=== PATIENT | female | born 1945 | race Caucasian/White ===

== ENCOUNTER → 2017-03-28 | Outpatient (CLI) | payer MEDICARE, OTHER | END | disposition home or self-care (01) | LOC: CFH 14:08 | PROVIDERS: ATTEND Family Medicine | DX: Z12.31 Encounter for screening mammogram for malignant neoplasm of breast (principal) | CPT/HCPCS: G0202 ==

== ENCOUNTER → 2018-05-29 | Outpatient (CLI) | payer MEDICARE | END | disposition home or self-care (01) | LOC: CFH 08:54 | PROVIDERS: ATTEND Family Medicine | DX: Z12.31 Encounter for screening mammogram for malignant neoplasm of breast (principal) | CPT/HCPCS: 77067 ==

== ENCOUNTER 2019-08-10 14:28 | Outpatient (CLI) | payer MEDICARE | END 2019-08-10 23:59 | disposition home or self-care (01) | LOC: CFH 14:28 | PROVIDERS: ATTEND Family Medicine | DX: Z12.31 Encounter for screening mammogram for malignant neoplasm of breast (principal); N64.89 Other specified disorders of breast | CPT/HCPCS: 77067 ==

== ENCOUNTER → 2020-03-19 | Outpatient (CLI) | payer MEDICARE ==
[~2020-03-19] MED LIST: ACET325T14 PO; ASPI325T17 PO; CALC1CAP8 PO; CBD PO; CHOL10003 PO; CYAN-27 PO; GABA300C PO; GINK30CA2 PO; LEVO50TA5 PO; LOSA25TA25 PO; MULT-717 PO; NAPR-868 PO; OXYB10TA26 PO; SIMV40TA20 PO; VERA80TA25 PO; VIT1TABL32 PO; dulcolax PO; flaxseed PO; potassium gluconate PO
[2020-03-19 16:41] LABS: BASOPHILS # (AUTO) 0.04 x10^3/uL (0-0.1); BASOPHILS % (AUTO) 1 % (0-1); EOSINOPHILS # (AUTO) 0.17 x10^3/uL (0-0.4); EOSINOPHILS % (AUTO) 4 % (1-7); LYMPHOCYTES # (AUTO) 0.96 x10^3/uL (1-3.4); LYMPHOCYTES % (AUTO) 20 % (22-44); MD NO; MEAN CORPUSCULAR HEMOGLOBIN 29.6 pg (27.0-34.8); MEAN CORPUSCULAR HGB CONC 31.7 g/dL (32.4-35.8); MEAN CORPUSCULAR VOLUME 93.6 fL (80-100); MEAN PLATELET VOLUME 8.4 fL (7.4-10.4); MONOCYTES % (AUTO) 6 % (2-9); NEUTROPHILS # (AUTO) 3.33 x10^3/uL (1.8-6.8); NEUTROPHILS % (AUTO) 69 % (42-75); PLATELET COUNT 251 x10^3/uL (130-400); RED BLOOD COUNT 3.85 x10^6/uL (3.82-5.3)
[2020-03-19 16:51] LABS: PROTHROMBIN TIME 10.3 Seconds (9.6-11.5)
[2020-03-19 16:55] LABS: ALBUMIN 3.8 g/dL (3.4-5.0); ANION GAP 6 mmol/L (5-15); CALCIUM 8.9 mg/dL (8.5-10.1); CHLORIDE 107 mmol/L (98-107)
[2020-03-19 16:58] LABS: ALANINE AMINOTRANSFERASE 28 U/L (12-78); ALKALINE PHOSPHATASE 80 U/L (45-117); BILIRUBIN,TOTAL 0.5 mg/dL (0.2-1.0); CREATININE 0.78 mg/dL (0.55-1.02); TOTAL PROTEIN 7.2 g/dL (6.4-8.2)
== END | disposition home or self-care (01) ==
LOC: STAR 15:41
PROVIDERS: ATTEND Orthopaedic Surgery
DX: Z01.818 Encounter for other preprocedural examination (principal); M25.561 Pain in right knee; M17.11 Unilateral primary osteoarthritis, right knee; I49.8 Other specified cardiac arrhythmias
CPT/HCPCS: 36415; 80053; 83036; 85025; 85610; 85730; 87081; 93005

== ENCOUNTER → 2020-03-28 | Outpatient (CLI) | payer MEDICARE | END | disposition home or self-care (01) | LOC: STAR 08:51 | PROVIDERS: ATTEND Anesthesiology | DX: Z01.812 Encounter for preprocedural laboratory examination (principal); Z20.828 Contact with and (suspected) exposure to other viral communicable diseases | CPT/HCPCS: 36415; 87635 ==

== ENCOUNTER 2020-04-02 05:42 | Observation (INO) | payer MEDICARE ==
[~2020-04-02] VITALS: Ht 170.2 cm; Wt 108.0 kg
[2020-04-02] MEDS ORDERED: CHLORHEXIDINE 15 ML UDC ONE (05:57)
[2020-04-02] MEDS ORDERED: LACTATED RINGERS 1,000 ML IV SCH (06:10)
[2020-04-02] MEDS ORDERED: KETOROLAC 60 MG/2 ML ONE (06:13)
[2020-04-02] MEDS ORDERED: TRANEXAMIC ACID 100 MG/ML, 10ML ONE ×2 (06:14)
[2020-04-02] MEDS ORDERED: ROPIvacaine/PF 0.5%, 30 ML ONE (06:14)
[2020-04-02] MEDS ORDERED: SODIUM CHLORIDE 0.9% 50 ML ONE (06:14)
[2020-04-02] MEDS ORDERED: VANCOMYCIN 1,000 MG ONE (06:14)
[2020-04-02] MEDS ORDERED: EPINEPHRINE 1 MG/ML, 1ML ONE (06:14)
[2020-04-02] MEDS ORDERED: FENTANYL PF 250 MCG/5ML ONE (06:28)
[2020-04-02] MEDS ORDERED: ACETAMINOPHEN 500 MG TABLET PO ONE (06:30)
[2020-04-02] MEDS ORDERED: GABAPENTIN 300 MG CAPSULE PO ONE (06:30)
[2020-04-02] MEDS ORDERED: CHLORHEXIDINE 15 ML UDC MM ONE (06:30)
[2020-04-02] MEDS: NS + 20MEQ KCL 1,000 ML IV SCH ×2 (06:35→19:05)
[2020-04-02] MEDS ORDERED: LIDOCAINE PF 2%, 5ML ONE (06:52)
[2020-04-02] MEDS ORDERED: ONDANSETRON 2MG/ML, 2ML IV PRN (07:00)
[2020-04-02] MEDS ORDERED: ZOLPIDEM 5MG TABLET PO PRN (07:00)
[2020-04-02] MEDS ORDERED: MAGNESIUM HYDROXIDE 8%, 30ML UDC PO PRN (07:00)
[2020-04-02] MEDS ORDERED: ACETAMINOPHEN 650 MG/20.3 ML UDC PO PRN (07:00)
[2020-04-02] MEDS ORDERED: ONDANSETRON 4 MG TABLET PO PRN (07:00)
[2020-04-02] MEDS ORDERED: DIPHENHYDRAMINE 50 MG CAPSULE PO PRN (07:00)
[2020-04-02] MEDS ORDERED: HYDROmorphone 1 MG/ML, 1ML INJ IV PRN (07:00)
[2020-04-02] MEDS ORDERED: BISACODYL 10 MG SUPP PR PRN (07:00)
[2020-04-02] MEDS ORDERED: HYDROcodone/APAP 5/325 TABLET PO PRN (07:00)
[2020-04-02] MEDS ORDERED: SENNA/DOCUSATE TABLET PO PRN (07:00)
[2020-04-02] MEDS ORDERED: ONDANSETRON 2MG/ML, 2ML IVPush PRN (07:30)
[2020-04-02] MEDS ORDERED: hydrALAzine 20 MG/ML, 1ML IV PRN (07:30)
[2020-04-02] MEDS ORDERED: OXYcodone 5 MG/5 ML ORAL.SOL UDC PO PRN (07:30)
[2020-04-02] MEDS ORDERED: LABETALOL 5MG/ML, 20ML IV PRN (07:30)
[2020-04-02] MEDS ORDERED: FENTANYL PF 100 MCG/2ML IV PRN (07:30)
[2020-04-02] MEDS ORDERED: PROMETHAZINE 25 MG SUPP PR PRN (07:30)
[2020-04-02] MEDS ORDERED: PROMETHAZINE 25 MG/ML, 1ML IVPush PRN (07:30)
[2020-04-02] MEDS ORDERED: HYDROmorphone 1 MG/ML, 1ML INJ IVPush PRN (07:30)
[2020-04-02] MEDS ORDERED: CEFAZOLIN 1,000 MG ONE (07:32)
[2020-04-02] MEDS ORDERED: PROPOFOL 10 MG/ML, 20ML ONE (07:32)
[2020-04-02] MEDS ORDERED: DEXAMETHASONE 4 MG/ML, 1ML ONE (07:32)
[2020-04-02] MEDS ORDERED: ONDANSETRON 2MG/ML, 2ML ONE (07:32)
[2020-04-02] MEDS ORDERED: ACETAMINOPHEN 650 MG/20.3 ML UDC ONE (08:44)
[2020-04-02] MEDS ORDERED: FENTANYL PF 100 MCG/2ML ONE (08:44)
[2020-04-02] MEDS ORDERED: OXYcodone 5 MG/5 ML ORAL.SOL UDC ONE (08:44)
[2020-04-02] MEDS: GABAPENTIN 300 MG CAPSULE PO SCH ×2 (09:00→20:48)
[2020-04-02] MEDS: LEVOTHYROXINE 50 MCG TABLET PO SCH (09:00)
[2020-04-02] MEDS: LOSARTAN 25MG TABLET PO SCH (09:00)
[2020-04-02 10:45] VITALS: BP 127/76
[2020-04-02] MEDS: OXYBUTYNIN CHLORIDE 5 MG TABLET PO SCH ×2 (11:00→20:48)
[2020-04-02] MEDS: DOCUSATE 100 MG CAPSULE PO SCH ×2 (12:20→20:48)
[2020-04-02 14:09] VITALS: BP 138/85
[2020-04-02] MEDS: CEFAZOLIN PMX 2GM/50ML 50 ML IVPB SCH ×2 (15:27→23:20)
[2020-04-02] MEDS: OXYcodone IR 5MG TABLET PO PRN ×2 (18:01→22:10)
[2020-04-02] MEDS: ASPIRIN 81 MG TABLET EC PO SCH (18:01)
[2020-04-02 19:43] VITALS: BP 154/80
[2020-04-02] MEDS: VERAPAMIL 80MG TABLET PO SCH (20:48)
[2020-04-02] MEDS ORDERED: SIMVASTATIN 40 MG TABLET PO SCH (21:00)
[2020-04-03 00:35] VITALS: BP 116/70
[2020-04-03] MEDS: OXYcodone IR 5MG TABLET PO PRN ×4 (02:02→14:13)
[2020-04-03 04:11] VITALS: BP 118/57
[2020-04-03] MEDS: ASPIRIN 81 MG TABLET EC PO SCH (05:55)
[2020-04-03] MEDS ORDERED: DEXAMETHASONE 4 MG/ML, 1ML IVPush SCH (06:00)
[2020-04-03] MEDS: NS + 20MEQ KCL 1,000 ML IV SCH (07:35)
[2020-04-03 08:43] VITALS: BP 119/74
[2020-04-03] MEDS: OXYBUTYNIN CHLORIDE 5 MG TABLET PO SCH (08:48)
[2020-04-03] MEDS: LOSARTAN 25MG TABLET PO SCH (08:48)
[2020-04-03] MEDS: LEVOTHYROXINE 50 MCG TABLET PO SCH (08:49)
[2020-04-03] MEDS: DOCUSATE 100 MG CAPSULE PO SCH (08:49)
[2020-04-03] MEDS: VERAPAMIL 80MG TABLET PO SCH (08:49)
[2020-04-03] MEDS: GABAPENTIN 300 MG CAPSULE PO SCH (08:49)
[2020-04-03] MEDS ORDERED: OXYC5CAP2 PO (09:15)
[2020-04-03] MEDS ORDERED: MELO7.5T31 PO (09:16)
[2020-04-03] MEDS ORDERED: TRAM50TA2 PO (09:16)
[2020-04-03 13:23] VITALS: BP 111/63
== END 2020-04-03 17:39 | disposition home or self-care (01) ==
LOC: OUT 05:42 → 4NE 10:44 → OUT 19:04
PROVIDERS: ADMIT Orthopaedic Surgery; ATTEND Orthopaedic Surgery
DX: M17.11 Unilateral primary osteoarthritis, right knee (principal); M24.561 Contracture, right knee; M21.061 Valgus deformity, not elsewhere classified, right knee; I10 Essential (primary) hypertension; E03.9 Hypothyroidism, unspecified; Z88.0 Allergy status to penicillin; Z79.899 Other long term (current) drug therapy; Z87.891 Personal history of nicotine dependence; Z96.652 Presence of left artificial knee joint
CPT/HCPCS: 27447; 36415; 85014; 85018; 96365; 96366; 96375; 97110; 97161; 97166; C1713; C1776; G0378; J0171; J0690; J1100; J1885; J2405; J2704; J2795; J3010; J3370; J7120